=== PATIENT | male | born 1960 | race Caucasian/White ===

== ENCOUNTER 2020-07-23 00:51 | Emergency (ER) | payer OTHER ==
[~2020-07-23] VITALS: Ht 165.1 cm; Wt 66.5 kg
[2020-07-23] MEDS ORDERED: CARVEDILOL25 MG PO (01:01)
[2020-07-23] MEDS ORDERED: SPIRONOLACTONE25 MG PO (01:01)
[2020-07-23] MEDS ORDERED: FUROSEMIDE 20 M20 MG PO (01:02)
[2020-07-23] MEDS ORDERED: AMARYL2 M1 PO (01:02)
[2020-07-23] MEDS ORDERED: ISORDIL 5MG TABL5 MG PO (01:02)
[2020-07-23] MEDS ORDERED: POTASSIUM20 PO (01:03)
[2020-07-23] MEDS ORDERED: METFORMIN HCL500 M3 PO (01:03)
[2020-07-23] MEDS ORDERED: METFORMIN PO (01:05)
[2020-07-23] MEDS ORDERED: CHILDREN'S ASPI81 M1 PO (01:06)
[2020-07-23] MEDS ORDERED: PLAVIX 75 MG TA75 MG PO (01:06)
[2020-07-23] MEDS ORDERED: ATORVASTATIN CA80 MG PO (01:06)
[2020-07-23] MEDS ORDERED: PRINIVIL10 MG PO (01:07)
[2020-07-23 02:34] LABS: URINE BILIRUBIN NEGATIVE (Negative); URINE BLOOD TRACE (Negative); URINE CLARITY CLEAR; URINE COLOR YELLOW; URINE GLUCOSE-RANDOM* TRACE (Negative); URINE KETONES NEGATIVE (Negative); URINE LEUKOCYTES-REFLEX NEGATIVE (Negative); URINE NITRITE-REFLEX NEGATIVE (Negative); URINE PROTEIN (DIPSTICK) 1+ (Negative); URINE SPECIFIC GRAVITY 1.015 (1.005-1.035)
[2020-07-23 02:40] LABS: CASTS None Seen /LPF (None Seen); CRYSTALS None Seen /LPF (None Seen); MUCUS None Seen strn/LPF (None Seen); SQUAMOUS None Seen /LPF (0-3); URINE RBC 3-10 Few /HPF (0-2); URINE WBC-REFLEX None Seen /HPF (0-5)
[2020-07-23 02:48] LABS: ABSOLUTE NEUTROPHILS 4.7 thou/uL (1.4-8.2); BASOPHILS 1.2 % (0.0-2.0); EOSINOPHILS 1.3 % (0.0-3.0); HEMATOCRIT 45.1 % (42.0-52.0); HEMOGLOBIN 14.1 gm/dL (14.0-18.0); LYMPHOCYTES 16.6 % (24.0-44.0); MCH 28.5 pg (26.0-34.0); MCHC 31.3 g/dL (28.0-37.0); MCV 91.3 fL (80.0-100.0); MONOCYTES 7.2 % (1.0-8.0); PLATELET COUNT 263 thou/uL (150-400); POLYS 73.7 % (36.0-66.0); RBC 4.94 mil/uL (4.50-6.00); RDW 17.3 % (10.5-14.5); WBC 6.4 thou/uL (4.0-11.0)
[2020-07-23 02:50] LABS: CALCIUM 8.6 mg/dL (8.5-10.1)
[2020-07-23 02:52] LABS: POTASSIUM 4.3 mmol/L (3.5-5.1)
[2020-07-23 02:56] LABS: ALBUMIN 2.6 g/dL (3.4-5.0); DIRECT BILIRUBIN 0.3 mg/dL (<0.1-0.2); TOTAL BILIRUBIN 1.1 mg/dL (0.2-1.0); TOTAL PROTEIN 7.2 g/dL (6.4-8.2)
[2020-07-23] MEDS ORDERED: AMARYL2 MG PO (03:44)
[2020-07-23] MEDS ORDERED: METFORMIN HCL500 MG PO (03:44)
[2020-07-23 03:53] VITALS: BP 149/110
--- NOTE | 2020-07-23 11:23 | EKG ---
[facility] [place] [address] ELECTROCARDIOGRAM REPORT Name: PURVI TAO Room #: DEP [facility]#: [id number] Admission: 07/23/20 Attend Phys: Discharge: 07/23/20 Date of : 64 Report #: [id number] THIS REPORT FOR: cc: Jamal Man MD, Michael S. MD Santiago, Patrick MD [facility] ~ THIS REPORT FOR: //name// [facility] ED Test Date: 2020-07-23 Test Time: 00:57:40 Pat Name: PURVI TAO Department: Room: Gender: [employer] Layer: [place] [id number] : 1960 Requested By: Lalo Napier Order Number: [id number] MD: Jordy Green Measurements Intervals [place] Rate: 69 P: 42 [place]: 176 QRS: -36 QRSD: 104 T: 133 QT: 457 QTc: 490 Interpretive Statements Sinus rhythm Borderline low voltage, extremity leads LVH with secondary repolarization abnormality Borderline prolonged QT interval No previous ECG available for comparison Electronically Signed On 07-23-2020 11:23:15 CDT by Jordy Green [email or web address] <ELECTRONICALLY SIGNED> By: Jordy Green MD, FACC 07/23/20 [id number] Jordy Green MD, [facility] /EPI
== END 2020-07-23 04:01 | disposition home or self-care (01) ==
LOC: ER 00:51
PROVIDERS: Emergency Medicine
DX: R19.00 Intra-abdominal and pelvic swelling, mass and lump, unspecified site (principal); E11.65 Type 2 diabetes mellitus with hyperglycemia; I25.2 Old myocardial infarction; Z79.82 Long term (current) use of aspirin; Z79.899 Other long term (current) drug therapy; Z87.891 Personal history of nicotine dependence; Z79.01 Long term (current) use of anticoagulants